=== PATIENT | female | born 1985 ===

== ENCOUNTER 2020-01-18 16:56 | Emergency (ER) | payer BC ==
[2020-01-18 17:07] VITALS: BP 134/82
--- NOTE | 2020-01-18 17:15 | UC ---
FLU HPI - HPI Summary HPI Summary: 34 yo with cough, sore throat and fever x 1 day. Temps up to 101.5, last ibuprofen was about 3 hours ago. + sweats. No nausea, vomiting or diarrhea. - History of Current Complaint Chief Complaint: UCRespiratory Stated Complaint: COUGH,FEVER Time Seen by Provider: 01/18/20 17:07 Hx Obtained From: Patient Hx Last Menstrual Period: 12/11/19 Onset/Duration: Gradual Onset, Lasting Days - 1 Severity Currently: Moderate Severity Initially: Mild Pain Intensity: 8 Associated Signs & Symptoms: Positive: Fever, Myalgia, Cough, Sore Throat. Negative: Headache, Vomiting, Diarrhea - Risk Factors Influenza Risk Factors: Negative - Allergy/Home Medications Allergies/Adverse Reactions: Allergies Allergy/AdvReac Type Severity Reaction Status Date / Time azithromycin Allergy Vomiting Verified 01/18/20 17:08 Home Medications: Home Medications Chlorpheniramine/Dextromethorp [Cough-Cold Tablet] 1 tab PO Q12HR 01/18/20 [ History Confirmed 01/18/20] Ibuprofen TAB* [Advil TAB*] 400 mg PO Q6HR 01/18/20 [History Confirmed 01/18/20] PMH/Surg Hx/FS Hx/Imm Hx Previously Healthy: Yes - Surgical History Surgical History: Yes Surgery Procedure, Year, and Place: wisdom teeth - Family History Known Family History: Positive: Diabetes - Social History Occupation: Employed Full-time Lives: With Family Alcohol Use: None Substance Use Type: None Smoking Status (MU): Never Smoked Tobacco Review of Systems All Other Systems Reviewed And Are Negative: Yes Constitutional: Positive: Fever, Fatigue Skin: Positive: Negative Eyes: Positive: Negative ENT: Positive: Sore Throat, Nasal Discharge Respiratory: Positive: Cough Cardiovascular: Negative: Palpitations, Chest Pain Gastrointestinal: Positive: Negative Genitourinary: Positive: Negative Motor: Positive: Negative Neurovascular: Positive: Negative Musculoskeletal: Positive: Negative Neurological/Mental Status: Positive: Negative Psychological: Positive: Negative Is Patient Immunocompromised?: No Physical Exam Triage Information Reviewed: Yes Appearance: No Pain Distress, Ill-Appearing - looks mildly unwell, sweating., Obese Vital Signs: Initial Vital Signs Temp 98.7 F 01/18/20 17:01 Pulse 86 01/18/20 17:01 Resp 16 01/18/20 17:01 BP 134/82 01/18/20 17:01 Pulse Ox 97 01/18/20 17:01 ENT: Positive: Pharyngeal erythema. Negative: Tonsillar swelling, Tonsillar exudate Neck: Positive: Supple, Nontender, No Lymphadenopathy Respiratory: Positive: Lungs clear, Normal breath sounds, No respiratory distress Cardiovascular: Positive: RRR, No Murmur Musculoskeletal Exam: Normal Neurological Exam: Normal Psychological Exam: Normal Skin Exam: Normal Diagnostics - Laboratory Lab Results: influenza B positive Flu Course/Dx - Course Course Of Treatment: Continue symptomatic treatment of influenza. Discussed and decided against Tamiflu. - Differential Dx/Diagnosis Differential Diagnosis/HQI/PQRI: Influenza, Upper Respiratory Infection Provider Diagnosis: Influenza B Discharge ED - Sign-Out/Discharge Documenting (check all that apply): Patient Departure All imaging exams completed and their final reports reviewed: No Studies - Discharge Plan Condition: Stable Disposition: HOME Patient Education Materials: Influenza (ED) Forms: *Work Release Referrals: No Primary Care Phys,NOPCP [Primary Care Provider] - Additional Instructions: Continue symptomatic treatment with ibuprofen and acetaminophen, and increase fluids to prevent dehydration. Rest at home until you are free of fever for 24 hours. REturn for follow up if you have increasing shortness of breath, chest pain, or symptms of dehydration (not passing urine). - Billing Disposition and Condition Condition: STABLE Disposition: Home
[2020-01-18 17:26] LABS: Influenza B Molecular POSITIVE (Negative)
== END 2020-01-18 17:59 | disposition home or self-care (01) ==
LOC: UCEAST 16:56
DX: J10.1 Influenza due to other identified influenza virus with other respiratory manifestations (principal); Z88.1 Allergy status to other antibiotic agents
CPT/HCPCS: 87651; 99201; G0463